=== PATIENT | male | born 1995 | race African-American/Black ===

== ENCOUNTER 2017-06-03 18:54 | Emergency (ER) | payer MEDICAID, OTHER ==
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
== END 2017-06-03 20:18 ==
LOC: DL.ED 18:54
DX: S40.021A Contusion of right upper arm, initial encounter (principal); Y04.0XXA Assault by unarmed brawl or fight, initial encounter
CPT/HCPCS: 73060-RT; 99283